=== PATIENT | female | born 1940 | race Caucasian/White ===

== ENCOUNTER → 2017-03-08 | Outpatient (CLI) | payer OTHER ==
--- NOTE | 2017-03-09 09:09 | MG ---
Examination: Bilateral screening mammogram. Clinical history: Routine screening. Technique: Digital CC and MLO views of both breasts were obtained. Computer aided detection analysis was performed and used during the interpretation. Comparison: 01/13/2016. Findings: The breasts are composed of scattered fibroglandular densities. Benign-appearing calcifications and vascular calcifications are noted in the breasts bilaterally. No suspicious mass, area of architectural distortion or suspicious cluster of microcalcifications is noted. Impression: 1. No mammographic evidence of malignancy. BI-RADS category 2-benign findings. Recommend routine annual screening mammogram. Diagnostic CAD was utilized and reviewed. * 0 (ZERO) - ASSESSMENT INCOMPLETE; ADDITIONAL IMAGING IS NEEDED. * 0C - ASSESSMENT INCOMPLETE, NEEDS ADDITIONAL IMAGING EVALUATION AND/OR PRIOR MAMMOGRAMS FOR COMPAR DEMETRA. * 1/1 (ONE) - NEGATIVE. * 2/II (TWO) - BENIGN FINDINGS. * 3/III (THREE) - PROBABLY BENIGN FINDING; SHORT INTERVAL FOLLOW-UP SUGGESTED. * 4/IV (FOUR) - SUSPICIOUS ABNORMALITY; BIOPSY SHOULD BE CONSIDERED. * 5/V - HIGHLY SUSPICIOUS OF MALIGNANCY; BIOPSY SHOULD BE PERFORMED. * 6/IV - KNOWN BIOPSY PROVEN MALIGNANCY-APPROPRIATE ACTION SHOULD BE TAKEN. A NEGATIVE X-RAY REPORT SHOULD NOT DELAY BIOPSY IF A DOMINANT OR CLINICALLY SUSPICIOUS MASS IS PRESENT; 4 TO 8 PERCENT OF CANCERS ARE NOT IDENTIFIED BY X-RAY. A NEGATIVE REPORT MAY REINFORCE THE CLINICAL IMPRESSION. ADENOSIS AND DENSE BREASTS MAY OBSCURE AN UNDERLYING NEOPLASM. Reported By:
== END ==
LOC: RAD 14:08
PROVIDERS: ATTEND Specialist
DX: Z12.31 Encounter for screening mammogram for malignant neoplasm of breast (principal)
CPT/HCPCS: 77067

== ENCOUNTER → 2017-08-16 | Outpatient (CLI) | payer OTHER ==
--- NOTE | 2017-08-17 14:15 | RAD ---
HISTORY: Shortness of breath Study: Chest PA and lateral Comparison: None Findings: The heart is within normal limits in size. The todd are normal. The lungs are hyperinflated consisten t with COPD. No acute alveolar infiltrates or pleural effusions are identified. The bony thorax is un remarkable with the exception of a pectus excavatum deformity. IMPRESSION: COPD Reported By:
== END | disposition home or self-care (01) ==
LOC: RAD 14:55
PROVIDERS: ATTEND Nurse Practitioner Family
DX: R06.02 Shortness of breath (principal); J44.9 Chronic obstructive pulmonary disease, unspecified
CPT/HCPCS: 71020

== ENCOUNTER 2022-07-13 13:02 | Observation (INO) ==
[2022-07-13] MEDS ORDERED: REMDESIVIR 200 MG in NS 250 ML IV 250 ML IV ONE (13:29)
[2022-07-13] MEDS ORDERED: ROCEPHIN 1 GRAM IV PREMIX 1 G/50 ML IV.SOLN. IV SCH (13:29)
--- NOTE | 2022-07-13 13:44 | DR.H&P ---
H&P - History & Physical for Day of: H&P Date: 07/13/22 - Chief Complaint Chief Complaint: covid +, weakness - History of Present Illness History of Present Illness: PT IS 82 WF DIRECT ADMIT FROM DR DANIEL OFFICE WITH CO RECENTLY SEEN IN ER WITH COVID 19, NO BETTER. PT CO FEELING VERY WEAK, NO APPETITE, DEHYDRATION. PT HAS PMH OF HTN, AROTIC VAVLE DISEASE, COPD. PT ADMITTED FOR TREATMENT OF ACUTE ILLNESS. - Past Medical History Past Medical History: Arthritis, COPD, Hypertension - Past Surgical History Additional Surgical History: TUBAL LIGATION, CATARACT - Family History Family Medical History: Hypertension - Social History Does patient currently use any type of tobacco product: No Have you used tobacco products in the last 12 months: No Type of Tobacco Use: None Does any household member use tobacco: No Alcohol Use: Rarely Drug Use: None Risks, benefits, and alternatives of opioids discussed: No - Medications Home Medications: Sulfa (Sulfonamide Antibiotics) [SULFA] Allergy (Verified 08/22/20 07:46) - Review of Systems Constitutional: Weakness, Malaise Eyes: No Symptoms Reported ENT: No Symptoms Reported Respiratory: SOB with Excertion Cardiovascular: denies: Chest Pain Gastrointestinal: Nausea, Diarrhea Genitourinary: No Symptoms Reported Musculoskeletal: No Symptoms Reported Skin: No Symptoms Reported Neurological: Weakness - Physical Exam Vital Signs: Blood Pressure [Standing] 123/55 Blood Pressure [Sitting] 149/65 Blood Pressure [Lying] 183/77 Blood Pressure 169/69 Oriented: Normal Eyes: Normal Ear: Normal Nose: Normal Throat: Normal Respiratory: RLL Diminished, LLL Diminished Cardiovascular: Normal. negative: Edema : Normal Auscultation: Bowel Sounds: Normal Palpation: Normal Tenderness: Normal Skin: Decreased Turgur Musculoskeletal: Normal Psychiatric: Anxiety Affect: Anxious Speech Pattern: Clear, Appropriate - Assessment/Plan (1) COVID-19 Status: Acute Plan: ADMIT, GENTLE IV HYDRATION. STRICT I&OS, REMDESIVIR. PPI, NAUSEA CONTROL, BP AND CARDIAC MONITORING. RESP CONSULT, EKG ON ADMISSION. CXR ON ADMISSION, PRN SUPPLEMENTAL O2 (2) Acute dehydration Status: Acute (3) Hypertension Status: Acute (4) Hypokalemia Status: Acute - Allergies Allergies/Adverse Reactions: Allergies Allergy/AdvReac Type Severity Reaction Status Date / Time Sulfa (Sulfonamide Allergy Verified 08/22/20 07:46 Antibiotics) [SULFA]
[2022-07-13 14:02] LABS: BASOPHILS % (AUTO) 0.7 % (0.2-1.0); EOSINOPHILS % (AUTO) 0.2 % (0.9-2.9); HEMATOCRIT 42.9 % (36.0-47.0); HEMOGLOBIN 14.7 g/dL (12.0-16.0); LYMPHOCYTES # (AUTO) 1.3 X10^3/uL (1.3-2.9); MEAN CORPUSCULAR HEMOGLOBIN 29.2 pg (27.0-34.0); MEAN CORPUSCULAR HGB CONC 34.4 g/dL (33.0-35.0); MEAN PLATELET VOLUME 7.7 fL (7.4-11.0); MONOCYTES # (AUTO) 0.6 x10^3/uL (0.3-0.8); MONOCYTES % (AUTO) 8.7 % (0.0-13.0); NEUTROPHILS # (AUTO) 4.9 x10^3/uL (2.2-4.8); NEUTROPHILS % (AUTO) 71.4 % (42.0-75.0); RED BLOOD COUNT 5.05 X10^6/uL (3.5-5.4); RED CELL DISTRIBUTION WIDTH 13.5 % (11.6-16.5); WHITE BLOOD COUNT 6.9 X10^3/uL (3.6-10.0)
[2022-07-13 14:26] LABS: ALANINE AMINOTRANSFERASE 31 Units/L (12-78); ALBUMIN 3.9 g/dL (3.4-5.0); ALKALINE PHOSPHATASE 73 Units/L (46-116); ASPARTATE AMINO TRANSFERASE 37 Units/L (15-37); BLOOD UREA NITROGEN 16 mg/dL (7-18); CALCIUM 8.7 mg/dL (8.5-10.1); CARBON DIOXIDE 34.3 mmol/L (21-32); CHLORIDE 95 mmol/L (98-107); CREATINE KINASE 113 Units/L (26-192); CREATININE 1.12 mg/dL (0.55-1.02); MAGNESIUM 1.6 mg/dL (1.7-2.9); SODIUM 137 mmol/L (136-145); TOTAL PROTEIN 7.4 g/dL (6.4-8.2); eGFR NON BLACK RACES 50 (>60)
--- NOTE | 2022-07-13 15:19 | RAD ---
HISTORYCOVID-19STUDYAP [id number] normal heart size with mild symmetric pulmonary hyperaeration. There is no evidence for infiltrate, pulmonary nodule, pleural fluid or other acute process.IMPRESSIONFindings consistent with COPD. No acute abnormality identified.Electronically signed by: FRANCOIS LUCAS (Jul 13, 2022 15:17:27)
[2022-07-13] MEDS: ROCEPHIN VIAL 1 GRAM 1 G in NS 100 ML IV 100 ML IV SCH (16:07)
[2022-07-13] MEDS: NS 1,000 ML IV 1,000 ML IV SCH (16:07)
[2022-07-13] MEDS: PROTONIX INJ 40 MG VIAL IVP SCH (16:07)
[2022-07-13] MEDS: SOLU-Medrol 40 MG VIAL IVP SCH ×2 (16:08→21:00)
[2022-07-13 16:16] LABS: BILIRUBIN,URINE NEGATIVE (NEGATIVE); BLOOD/HEMOGLOBIN,URINE 1+ (NEGATIVE); GLUCOSE, URINE NEGATIVE (NEGATIVE); KETONES,URINE NEGATIVE (NEGATIVE); LEUKOCYTE ESTERASE ,URINE NEGATIVE (NEGATIVE); NITRITES,URINE NEGATIVE (NEGATIVE); PH,URINE 6.5 (5.0 - 8.0); PROTEIN,URINE NEGATIVE (NEGATIVE); UROBILINOGEN,URINE NORMAL (NORMAL)
[2022-07-13 16:30] LABS: APPEARANCE,URINE CLEAR (CLEAR); COLOR,URINE STRAW (YELLOW)
[2022-07-13 16:31] LABS: BACTERIA,URINE NEGATIVE /HPF (NEGATIVE); RBC,URINE 0-2 /HPF (0-3); SQUAMOUS EPITHELIAL CELL,UR RARE /HPF (NEGATIVE)
[2022-07-13] MEDS ORDERED: NS 250 ML IV 250 ML IV ONE (17:08)
[2022-07-13] MEDS ORDERED: REMDESIVIR IV ONE (17:08)
[2022-07-13] MEDS: XOPENEX 1.25 MG/3 ML NEBULE NEB SCH (21:00)
[2022-07-13] MEDS: PULMICORT NEB TX 0.5 MG NEB SCH (21:00)
[2022-07-13] MEDS ORDERED: KLOR-CON PO PRN (22:59)
[2022-07-13] MEDS ORDERED: MICRO K EXTEN CAP 10 MEQ PO PRN (22:59)
[2022-07-13] MEDS ORDERED: POTASSIUM CHL 40 MEQ/NS 0.45% 500 ML IV PRN (22:59)
[2022-07-13] MEDS ORDERED: POTASSIUM CHLORIDE LIQ 20 MEQ UDC PO PRN (22:59)
[2022-07-13] MEDS ORDERED: K-RIDER 10 MEQ/NS 100 ML 10 MEQ/100 ML BAG IV PRN (22:59)
[2022-07-13] MEDS ORDERED: POTASSIUM CHL 60 MEQ/NS 0.45% 500 ML IV PRN (22:59)
[2022-07-13] MEDS: MAGNESIUM SULFATE 1 GRAM/100 mL PREMIX 1 G/100 ML BAG IV PRN (23:27)
[2022-07-14] MEDS: MAGNESIUM SULFATE 1 GRAM/100 mL PREMIX 1 G/100 ML BAG IV PRN (00:46)
[2022-07-14 02:41] LABS: BASOPHILS % (AUTO) 0.4 % (0.2-1.0); HEMATOCRIT 41.4 % (36.0-47.0); HEMOGLOBIN 14.5 g/dL (12.0-16.0); LYMPHOCYTES # (AUTO) 0.7 X10^3/uL (1.3-2.9); LYMPHOCYTES % (AUTO) 18.3 % (21.0-51.0); MEAN CORPUSCULAR HEMOGLOBIN 29.6 pg (27.0-34.0); MEAN CORPUSCULAR HGB CONC 34.9 g/dL (33.0-35.0); MEAN CORPUSCULAR VOLUME 84.7 fL (80.0-100.0); MEAN PLATELET VOLUME 8.3 fL (7.4-11.0); MONOCYTES # (AUTO) 0.1 x10^3/uL (0.3-0.8); MONOCYTES % (AUTO) 1.4 % (0.0-13.0); NEUTROPHILS # (AUTO) 3.2 x10^3/uL (2.2-4.8); NEUTROPHILS % (AUTO) 79.9 % (42.0-75.0); RED BLOOD COUNT 4.89 X10^6/uL (3.5-5.4); RED CELL DISTRIBUTION WIDTH 13.5 % (11.6-16.5); WHITE BLOOD COUNT 4.1 X10^3/uL (3.6-10.0)
[2022-07-14 02:50] LABS: ALANINE AMINOTRANSFERASE 27 Units/L (12-78); ALBUMIN 3.5 g/dL (3.4-5.0); ALKALINE PHOSPHATASE 72 Units/L (46-116); ASPARTATE AMINO TRANSFERASE 32 Units/L (15-37); BLOOD UREA NITROGEN 13 mg/dL (7-18); CALCIUM 8.6 mg/dL (8.5-10.1); CARBON DIOXIDE 29.1 mmol/L (21-32); CHLORIDE 96 mmol/L (98-107); COR NA(FOR HYPERGLY) 139 mmol/L (136-145); CREATININE 1.16 mg/dL (0.55-1.02); SODIUM 137 mmol/L (136-145); TOTAL PROTEIN 7.2 g/dL (6.4-8.2); eGFR NON BLACK RACES 48 (>60)
[2022-07-14] MEDS: K-DUR TAB 20 MEQ PO PRN ×3 (03:19→14:13)
[2022-07-14] MEDS ORDERED: CARDIZEM CD 120 MG 24-HR PO ONE (03:42)
[2022-07-14] MEDS ORDERED: HYDROCHLOROTHIAZIDE 25 MG TAB PO ONE (03:47)
[2022-07-14] MEDS: NS 1,000 ML IV 1,000 ML IV SCH ×4 (04:22→23:08)
[2022-07-14] MEDS: XOPENEX 1.25 MG/3 ML NEBULE NEB SCH ×4 (05:00→20:10)
[2022-07-14] MEDS: SOLU-Medrol 40 MG VIAL IVP SCH ×2 (05:02→14:48)
[2022-07-14] MEDS ORDERED: REMDESIVIR 100 MG in NS 250 ML IV 250 ML IV SCH (09:00)
[2022-07-14] MEDS: PROTONIX INJ 40 MG VIAL IVP SCH (09:03)
[2022-07-14] MEDS: ROCEPHIN VIAL 1 GRAM 1 G in NS 100 ML IV 100 ML IV SCH (09:07)
[2022-07-14] MEDS: PULMICORT NEB TX 0.5 MG NEB SCH ×2 (09:50→20:10)
[2022-07-14] MEDS: LOVENOX INJ 30 MG SYR SC SCH ×2 (10:05→20:50)
[2022-07-15] MEDS: XOPENEX 1.25 MG/3 ML NEBULE NEB SCH (05:40)
[2022-07-15 05:46] LABS: BASOPHILS % (AUTO) 0.1 % (0.2-1.0); HEMOGLOBIN 13.2 g/dL (12.0-16.0); LYMPHOCYTES % (AUTO) 10.2 % (21.0-51.0); MEAN CORPUSCULAR HEMOGLOBIN 29.6 pg (27.0-34.0); MEAN CORPUSCULAR HGB CONC 34.7 g/dL (33.0-35.0); MEAN CORPUSCULAR VOLUME 85.4 fL (80.0-100.0); MONOCYTES # (AUTO) 0.5 x10^3/uL (0.3-0.8); MONOCYTES % (AUTO) 5.4 % (0.0-13.0); NEUTROPHILS # (AUTO) 8.4 x10^3/uL (2.2-4.8); NEUTROPHILS % (AUTO) 84.3 % (42.0-75.0); RED BLOOD COUNT 4.45 X10^6/uL (3.5-5.4); RED CELL DISTRIBUTION WIDTH 13.4 % (11.6-16.5); WHITE BLOOD COUNT 9.9 X10^3/uL (3.6-10.0)
[2022-07-15 06:02] LABS: ALANINE AMINOTRANSFERASE 21 Units/L (12-78); ALBUMIN 3.1 g/dL (3.4-5.0); ALKALINE PHOSPHATASE 61 Units/L (46-116); ASPARTATE AMINO TRANSFERASE 25 Units/L (15-37); BLOOD UREA NITROGEN 18 mg/dL (7-18); CARBON DIOXIDE 28.3 mmol/L (21-32); CHLORIDE 103 mmol/L (98-107); COR CA(FOR HYPOALB) 8.7 mg/dL (8.5-10.1); COR NA(FOR HYPERGLY) 142 mmol/L (136-145); CREATININE 0.93 mg/dL (0.55-1.02); SODIUM 141 mmol/L (136-145); TOTAL PROTEIN 6.3 g/dL (6.4-8.2); eGFR NON BLACK RACES > 60 (>60)
[2022-07-15] MEDS: K-DUR TAB 20 MEQ PO PRN (06:21)
[2022-07-15] MEDS: PULMICORT NEB TX 0.5 MG NEB SCH (08:30)
[2022-07-15] MEDS: MAGNESIUM SULFATE 1 GRAM/100 mL PREMIX 1 G/100 ML BAG IV PRN ×2 (08:53→12:10)
[2022-07-15] MEDS ORDERED: HYDROCHLOROTHIAZIDE 25 MG TAB PO SCH (09:00)
[2022-07-15] MEDS ORDERED: CARDIZEM CD 120 MG 24-HR PO SCH (09:00)
[2022-07-15] MEDS ORDERED: SOLU-Medrol 40 MG VIAL IVP SCH (09:00)
[2022-07-15 09:32] VITALS: BP 136/66
[2022-07-15] MEDS: LOVENOX INJ 30 MG SYR SC SCH (09:37)
[2022-07-15] MEDS: PROTONIX INJ 40 MG VIAL IVP SCH (09:37)
[2022-07-15] MEDS: NS 1,000 ML IV 1,000 ML IV SCH (09:38)
[2022-07-15] MEDS: ROCEPHIN VIAL 1 GRAM 1 G in NS 100 ML IV 100 ML IV SCH (09:42)
== END 2022-07-15 13:20 | disposition home or self-care (01) ==
LOC: MED/SURG
PROVIDERS: ADMIT Internal Medicine; ATTEND Internal Medicine
DX: J44.9 Chronic obstructive pulmonary disease, unspecified; E83.42 Hypomagnesemia; M19.90 Unspecified osteoarthritis, unspecified site; R06.02 Shortness of breath; U07.1 COVID-19; R94.31 Abnormal electrocardiogram [ECG] [EKG]; I35.8 Other nonrheumatic aortic valve disorders; E87.6 Hypokalemia; K52.9 Noninfective gastroenteritis and colitis, unspecified; I10 Essential (primary) hypertension; E86.0 Dehydration

== ENCOUNTER 2024-03-07 10:42 | Inpatient (IN) ==
[2024-03-07] MEDS ORDERED: TYLENOL 500 MG TAB EXTRA STRENGTH PO PRN (14:56)
[2024-03-07] MEDS: MIRALAX POWDER (1 DOSE 17 G) PO SCH (16:16)
[2024-03-07] MEDS: ROBAXIN PO SCH (16:16)
[2024-03-07] MEDS: LIDODERM 5% PATCH TD SCH (16:16)
[2024-03-07] MEDS: NEURONTIN CAP 100 MG PO SCH (16:17)
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
[2024-03-07] MEDS: CRESTOR TAB 10 MG PO SCH (21:03)
[2024-03-07] MEDS: ROXICODONE TAB 5 MG PO PRN (21:19)
[2024-03-08 05:12] LABS: BASOPHILS # (AUTO) 0.1 X10^3/uL (0.0-0.1); BASOPHILS % (AUTO) 0.4 % (0.2-1.0); EOSINOPHILS # (AUTO) 0.3 x10^3/uL (0.0-0.2); EOSINOPHILS % (AUTO) 2.9 % (0.9-2.9); HEMATOCRIT 29.6 % (36.0-47.0); HEMOGLOBIN 9.9 g/dL (12.0-16.0); LYMPHOCYTES # (AUTO) 1.1 X10^3/uL (1.3-2.9); LYMPHOCYTES % (AUTO) 8.9 % (21.0-51.0); MEAN CORPUSCULAR HEMOGLOBIN 30.2 pg (27.0-34.0); MEAN CORPUSCULAR HGB CONC 33.4 g/dL (33.0-35.0); MEAN CORPUSCULAR VOLUME 90.5 fL (80.0-100.0); MEAN PLATELET VOLUME 6.9 fL (7.4-11.0); NEUTROPHILS # (AUTO) 9.6 x10^3/uL (2.2-4.8); NEUTROPHILS % (AUTO) 79.8 % (42.0-75.0); PLATELET COUNT 661 X10^3/uL (150.0-450.0); RED BLOOD COUNT 3.28 X10^6/uL (3.5-5.4); RED CELL DISTRIBUTION WIDTH 15.9 % (11.6-16.5)
[2024-03-08 05:26] LABS: ALANINE AMINOTRANSFERASE 27 Units/L (12-78); ALBUMIN 1.9 g/dL (3.4-5.0); ALKALINE PHOSPHATASE 133 Units/L (46-116); ASPARTATE AMINO TRANSFERASE 41 Units/L (15-37); BLOOD UREA NITROGEN 14 mg/dL (7-18); CALCIUM 8.3 mg/dL (8.5-10.1); CARBON DIOXIDE 31.7 mmol/L (21-32); CHLORIDE 101 mmol/L (98-107); CREATININE 0.72 mg/dL (0.55-1.02); GLUCOSE 90 mg/dL (65-99); POTASSIUM 3.3 mmol/L (3.5-5.1); SODIUM 137 mmol/L (136-145); TOTAL PROTEIN 5.7 g/dL (6.4-8.2); eGFR NON BLACK RACES > 60 (>60)
[2024-03-08] MEDS ORDERED: CONSULT PHARMACY - POTASSIUM & MAGNESIUM XX SCH (06:00)
[2024-03-08] MEDS: K-DUR TAB 20 MEQ PO SCH (09:19)
[2024-03-08] MEDS: PROTONIX TAB 40 MG PO SCH (10:31)
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
[2024-03-08] MEDS: ROXICODONE TAB 5 MG PO SCH (13:26)
--- NOTE | 2024-03-09 08:31 | DR.UPDATE ---
H&P UPDATE (1) Multiple fractures: (2) Severe trauma to extremity within past 4 weeks: Review Yes Any changes to H&P?: Yes Changes noted:: S/P TRAUMATIC ORTHOPEDIC REPAIR
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
[2024-03-09] MEDS: MILK OF MAGNESIA PO SCH (20:13)
[2024-03-09] MEDS: COLACE CAP 100 MG PO SCH (20:14)
[2024-03-10 06:19] LABS: BASOPHILS # (AUTO) 0.1 X10^3/uL (0.0-0.1); BASOPHILS % (AUTO) 0.8 % (0.2-1.0); EOSINOPHILS # (AUTO) 0.5 x10^3/uL (0.0-0.2); EOSINOPHILS % (AUTO) 4.8 % (0.9-2.9); HEMATOCRIT 28.3 % (36.0-47.0); HEMOGLOBIN 9.7 g/dL (12.0-16.0); LYMPHOCYTES # (AUTO) 1.3 X10^3/uL (1.3-2.9); LYMPHOCYTES % (AUTO) 12.9 % (21.0-51.0); MEAN CORPUSCULAR HEMOGLOBIN 30.9 pg (27.0-34.0); MEAN CORPUSCULAR HGB CONC 34.2 g/dL (33.0-35.0); MEAN CORPUSCULAR VOLUME 90.4 fL (80.0-100.0); MEAN PLATELET VOLUME 7.1 fL (7.4-11.0); MONOCYTES # (AUTO) 1.1 x10^3/uL (0.3-0.8); MONOCYTES % (AUTO) 10.8 % (0.0-13.0); NEUTROPHILS % (AUTO) 70.7 % (42.0-75.0); PLATELET COUNT 510 X10^3/uL (150.0-450.0); RED BLOOD COUNT 3.13 X10^6/uL (3.5-5.4); RED CELL DISTRIBUTION WIDTH 15.6 % (11.6-16.5); WHITE BLOOD COUNT 9.9 X10^3/uL (3.6-10.0)
[2024-03-10 06:33] LABS: ALANINE AMINOTRANSFERASE 25 Units/L (12-78); ALBUMIN 1.9 g/dL (3.4-5.0); ALKALINE PHOSPHATASE 138 Units/L (46-116); ASPARTATE AMINO TRANSFERASE 30 Units/L (15-37); BLOOD UREA NITROGEN 15 mg/dL (7-18); CALCIUM 8.4 mg/dL (8.5-10.1); CARBON DIOXIDE 28.7 mmol/L (21-32); CHLORIDE 102 mmol/L (98-107); COR CA(FOR HYPOALB) 10.1 mg/dL (8.5-10.1); CREATININE 0.73 mg/dL (0.55-1.02); GLUCOSE 90 mg/dL (65-99); MAGNESIUM 2.2 mg/dL (2.0-2.9); POTASSIUM 3.5 mmol/L (3.5-5.1); SODIUM 140 mmol/L (136-145); TOTAL PROTEIN 5.7 g/dL (6.4-8.2); eGFR NON BLACK RACES > 60 (>60)
[2024-03-10] MEDS: CONSULT PHARMACY - POTASSIUM & MAGNESIUM XX SCH (07:24)
[2024-03-10] MEDS: K-DUR TAB 20 MEQ PO SCH (08:36)
--- NOTE | 2024-03-10 12:21 | VAS ---
EXAM:VENOUS DOPPLER LOWER EXTREMITY UNILATERAL LEFTHISTORY:. Evaluate for DVT.COMPARISON:: None.TECHNIQUE:Ultrasound of the deep venous vasculature of the left lower extremity was performed. Color and spectral doppler imaging was utilized.FINDINGS:The deep veins of the left lower extremity are normal in size and configuration. No intraluminal filling defects are seen on grayscale or color flow imaging. The veins compress normally. Doppler waveforms are normal at rest and with augmentation.IMPRESSION:Negative left lower extremity DVT ultrasound examination.THIS IS AN ELECTRONICALLY VERIFIED FINAL REPORT03/10/2024 12:17 PM - Electronically signed by Eliezer Cardona
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
[2024-03-10] MEDS: DULCOLAX SUPPOSITORY 10 MG ONE (21:52)
[2024-03-10] MEDS: DULCOLAX SUPPOSITORY 10 MG RECTAL ONE (21:59)
[2024-03-11 06:29] LABS: BASOPHILS # (AUTO) 0.1 X10^3/uL (0.0-0.1); BASOPHILS % (AUTO) 0.6 % (0.2-1.0); EOSINOPHILS # (AUTO) 0.5 x10^3/uL (0.0-0.2); EOSINOPHILS % (AUTO) 5.4 % (0.9-2.9); HEMOGLOBIN 9.9 g/dL (12.0-16.0); LYMPHOCYTES # (AUTO) 1.4 X10^3/uL (1.3-2.9); LYMPHOCYTES % (AUTO) 13.7 % (21.0-51.0); MEAN CORPUSCULAR VOLUME 91.1 fL (80.0-100.0); MONOCYTES % (AUTO) 10.2 % (0.0-13.0); NEUTROPHILS # (AUTO) 7.1 x10^3/uL (2.2-4.8); NEUTROPHILS % (AUTO) 70.1 % (42.0-75.0); PLATELET COUNT 473 X10^3/uL (150.0-450.0); RED BLOOD COUNT 3.19 X10^6/uL (3.5-5.4); RED CELL DISTRIBUTION WIDTH 15.8 % (11.6-16.5); WHITE BLOOD COUNT 10.1 X10^3/uL (3.6-10.0)
[2024-03-11 06:51] LABS: ALANINE AMINOTRANSFERASE 29 Units/L (12-78); ALKALINE PHOSPHATASE 155 Units/L (46-116); ASPARTATE AMINO TRANSFERASE 35 Units/L (15-37); BLOOD UREA NITROGEN 15 mg/dL (7-18); CALCIUM 8.6 mg/dL (8.5-10.1); CARBON DIOXIDE 29.4 mmol/L (21-32); CHLORIDE 101 mmol/L (98-107); COR CA(FOR HYPOALB) 10.2 mg/dL (8.5-10.1); GLUCOSE 89 mg/dL (65-99); MAGNESIUM 2.3 mg/dL (2.0-2.9); SODIUM 138 mmol/L (136-145); eGFR NON BLACK RACES > 60 (>60)
[2024-03-11] MEDS ORDERED: TORADOL 15 MG VIAL IVP PRN (10:23)
--- NOTE | 2024-03-11 13:52 | RAD ---
EXAM:Left kneeHISTORY:left knee pain, swelling; pt states she recently had an accident and broke the left hipCOMPARISON:None.TECHNIQUE:3 views were submitted for interpretation.FINDINGS:Joint space and alignment are normal. No displaced fracture.IMPRESSION:No acute abnormality.THIS IS AN ELECTRONICALLY VERIFIED FINAL REPORT03/11/2024 1:48 PM - Electronically signed by Yoni Bernstein MD
--- NOTE | 2024-03-11 14:43 | CT ---
EXAM:CT pelvis without contrastHISTORY:LT HIP PAIN; pt states she recently had an accident and broke the left hipCOMPARISON:None.TECHNIQUE:Noncontrast CT imaging was performed through the pelvis. Dose reduction techniques including Automated Exposure Control (AEC) and adjustment of mA and kV were utilized.FINDINGS:BOWEL: Large amount of stool throughout the colon without other abnormalities.APPENDIX: No significant abnormality.PERITONEUM: No free fluid, free air or fluid collection.VASCULATURE:Moderate atherosclerosis with normal caliber of the aorta.LYMPH NODES: No adenopathy.BLADDER: Distended without wall thickening.REPRODUCTIVE ORGANS: No significant abnormality.BONES: Acute comminuted right pubic bone fracture with surrounding hematoma. Acute fractures of the left transverse processes of L3 and L4. Acute bilateral zone 2 sacral fractures. Expected positioning of lumbosacral fusion.ADDITIONAL FINDINGS: None.IMPRESSION:1. Acute sacral and right pubic bone fractures as well as acute fractures of the left transverse processes of L3 and L4.2. Additional findings as above.THIS IS AN ELECTRONICALLY VERIFIED FINAL REPORT03/11/2024 2:39 PM - Electronically signed by Roney Davis MD
[2024-03-13 07:24] LABS: BASOPHILS # (AUTO) 0.1 X10^3/uL (0.0-0.1); EOSINOPHILS # (AUTO) 0.4 x10^3/uL (0.0-0.2); EOSINOPHILS % (AUTO) 5.3 % (0.9-2.9); HEMATOCRIT 28.7 % (36.0-47.0); HEMOGLOBIN 9.5 g/dL (12.0-16.0); LYMPHOCYTES # (AUTO) 1.6 X10^3/uL (1.3-2.9); LYMPHOCYTES % (AUTO) 18.6 % (21.0-51.0); MEAN CORPUSCULAR HEMOGLOBIN 30.5 pg (27.0-34.0); MEAN CORPUSCULAR HGB CONC 33.1 g/dL (33.0-35.0); MEAN PLATELET VOLUME 6.6 fL (7.4-11.0); MONOCYTES # (AUTO) 0.8 x10^3/uL (0.3-0.8); NEUTROPHILS # (AUTO) 5.5 x10^3/uL (2.2-4.8); NEUTROPHILS % (AUTO) 65.1 % (42.0-75.0); PLATELET COUNT 384 X10^3/uL (150.0-450.0); RED BLOOD COUNT 3.12 X10^6/uL (3.5-5.4); RED CELL DISTRIBUTION WIDTH 15.4 % (11.6-16.5); WHITE BLOOD COUNT 8.5 X10^3/uL (3.6-10.0)
[2024-03-13 07:33] LABS: ALANINE AMINOTRANSFERASE 41 Units/L (12-78); ALKALINE PHOSPHATASE 233 Units/L (46-116); ASPARTATE AMINO TRANSFERASE 57 Units/L (15-37); BLOOD UREA NITROGEN 12 mg/dL (7-18); CALCIUM 8.5 mg/dL (8.5-10.1); CARBON DIOXIDE 34.6 mmol/L (21-32); CHLORIDE 102 mmol/L (98-107); COR CA(FOR HYPOALB) 10.1 mg/dL (8.5-10.1); CREATININE 0.89 mg/dL (0.55-1.02); GLUCOSE 92 mg/dL (65-99); POTASSIUM 4.1 mmol/L (3.5-5.1); SODIUM 139 mmol/L (136-145); TOTAL PROTEIN 5.7 g/dL (6.4-8.2); eGFR NON BLACK RACES > 60 (>60)
[2024-03-13] MEDS: ZOFRAN TAB 4 MG PO PRN (09:51)
[2024-03-13] MEDS: MOTRIN TAB 800 MG PO PRN (19:13)
[2024-03-14] MEDS: ANTIVERT TAB 25 MG PO SCH (13:27)
--- NOTE | 2024-03-14 14:47 | RAD ---
EXAM:X-ray right foot three viewsHISTORY:Hx right 2nd and 3rd metatarsal base fractures -COMPARISON:None.FINDINGS:There are fractures of the proximal aspect of the 2nd and 3rd metatarsals. There may be a fracture of the base of 4th metatarsal, also. No dislocation is seen. There is a tiny calcaneal plantar spur.IMPRESSION:Nondisplaced fractures are seen in the proximal aspects of the 2nd and 3rd metatarsals and possibly the 4th metatarsal.THIS IS AN ELECTRONICALLY VERIFIED FINAL REPORT03/14/2024 2:44 PM - Electronically signed by Alexis Medley MD
[2024-03-14] MEDS: KEFLEX CAP 500 MG PO SCH (20:31)
[2024-03-15 06:17] LABS: BASOPHILS # (AUTO) 0.1 X10^3/uL (0.0-0.1); BASOPHILS % (AUTO) 0.6 % (0.2-1.0); EOSINOPHILS # (AUTO) 0.2 x10^3/uL (0.0-0.2); EOSINOPHILS % (AUTO) 2.2 % (0.9-2.9); HEMATOCRIT 29.4 % (36.0-47.0); LYMPHOCYTES # (AUTO) 1.6 X10^3/uL (1.3-2.9); LYMPHOCYTES % (AUTO) 14.5 % (21.0-51.0); MEAN CORPUSCULAR HEMOGLOBIN 30.7 pg (27.0-34.0); MEAN CORPUSCULAR HGB CONC 33.9 g/dL (33.0-35.0); MEAN CORPUSCULAR VOLUME 90.6 fL (80.0-100.0); MEAN PLATELET VOLUME 7.1 fL (7.4-11.0); MONOCYTES # (AUTO) 0.8 x10^3/uL (0.3-0.8); MONOCYTES % (AUTO) 7.6 % (0.0-13.0); NEUTROPHILS # (AUTO) 8.2 x10^3/uL (2.2-4.8); NEUTROPHILS % (AUTO) 75.1 % (42.0-75.0); PLATELET COUNT 400 X10^3/uL (150.0-450.0); RED BLOOD COUNT 3.25 X10^6/uL (3.5-5.4); RED CELL DISTRIBUTION WIDTH 15.4 % (11.6-16.5)
[2024-03-15 06:25] LABS: ALANINE AMINOTRANSFERASE 27 Units/L (12-78); ALBUMIN 2.1 g/dL (3.4-5.0); ALKALINE PHOSPHATASE 203 Units/L (46-116); ASPARTATE AMINO TRANSFERASE 32 Units/L (15-37); BLOOD UREA NITROGEN 20 mg/dL (7-18); CALCIUM 8.4 mg/dL (8.5-10.1); CARBON DIOXIDE 31.4 mmol/L (21-32); CHLORIDE 97 mmol/L (98-107); COR CA(FOR HYPOALB) 9.9 mg/dL (8.5-10.1); CREATININE 1.39 mg/dL (0.55-1.02); GLUCOSE 89 mg/dL (65-99); SODIUM 134 mmol/L (136-145); eGFR NON BLACK RACES 39 (>60)
--- NOTE | 2024-03-15 06:51 | RAD ---
EXAM:KUBHISTORY:ConstipationCOMPARISON: .br.br.br.br.br.br and nonobstructive. No abnormal masses or abnormal calcifications are identified. A large amount of stool is not identified. Regional skeleton is osteopenic. Postsurgical changes are present in the lower lumbar spine and pelvis with hardware present. There is evidence for old pelvic trauma with diastasis of the pubic symphysis.IMPRESSION:Nonspecific, nonobstructive bowel gas patternA large amount of stool is not identified.THIS IS AN ELECTRONICALLY VERIFIED FINAL REPORT03/15/2024 6:48 AM - Electronically signed by Alen Brown MD
[2024-03-15] MEDS ORDERED: CONSULT PHARMACY - POTASSIUM & MAGNESIUM XX SCH (10:00)
[2024-03-15] MEDS: ANTIVERT TAB 25 MG PO SCH (13:21)
--- NOTE | 2024-03-15 15:14 | RAD ---
EXAM:ANKLE, RIGHT x-ray three viewsHISTORY:HX OF MULTIPLE FRACTURES -COMPARISON:None.FINDINGS:There is a nondisplaced medial malleolus fracture. No widening of the ankle mortise is seen. There is likely mild diffuse soft tissue swelling. Tiny calcaneal plantar spur.IMPRESSION:Nondisplaced medial malleolus fracture.THIS IS AN ELECTRONICALLY VERIFIED FINAL REPORT03/15/2024 3:11 PM - Electronically signed by Alexis Medley MD
[2024-03-15] MEDS: MEGACE ORAL SUSP 400 MG/10 ML PO SCH (16:57)
[2024-03-15] MEDS: BUTT CREAM (COMPOUND) TOP PRN (21:59)
[2024-03-16 17:25] LABS: BILIRUBIN,URINE NEGATIVE (NEGATIVE); BLOOD/HEMOGLOBIN,URINE 1+ (NEGATIVE); GLUCOSE, URINE NEGATIVE (NEGATIVE); KETONES,URINE NEGATIVE (NEGATIVE); LEUKOCYTE ESTERASE ,URINE NEGATIVE (NEGATIVE); NITRITES,URINE NEGATIVE (NEGATIVE); PROTEIN,URINE 1+ (NEGATIVE); UROBILINOGEN,URINE NORMAL (NORMAL)
[2024-03-16 18:33] LABS: APPEARANCE,URINE CLEAR (CLEAR); COLOR,URINE YELLOW (YELLOW)
[2024-03-16 18:34] LABS: BACTERIA,URINE NEGATIVE /HPF (NEGATIVE); RBC,URINE 0-2 /HPF (0-3); SQUAMOUS EPITHELIAL CELL,UR RARE /HPF (NEGATIVE)
[2024-03-17 05:14] LABS: BASOPHILS # (AUTO) 0.1 X10^3/uL (0.0-0.1); BASOPHILS % (AUTO) 0.5 % (0.2-1.0); EOSINOPHILS # (AUTO) 0.4 x10^3/uL (0.0-0.2); HEMATOCRIT 29.1 % (36.0-47.0); HEMOGLOBIN 9.7 g/dL (12.0-16.0); LYMPHOCYTES # (AUTO) 1.2 X10^3/uL (1.3-2.9); LYMPHOCYTES % (AUTO) 11.5 % (21.0-51.0); MEAN CORPUSCULAR HEMOGLOBIN 30.2 pg (27.0-34.0); MEAN CORPUSCULAR HGB CONC 33.2 g/dL (33.0-35.0); MEAN CORPUSCULAR VOLUME 90.8 fL (80.0-100.0); MEAN PLATELET VOLUME 7.1 fL (7.4-11.0); MONOCYTES # (AUTO) 0.9 x10^3/uL (0.3-0.8); MONOCYTES % (AUTO) 8.3 % (0.0-13.0); NEUTROPHILS % (AUTO) 75.7 % (42.0-75.0); PLATELET COUNT 355 X10^3/uL (150.0-450.0); RED CELL DISTRIBUTION WIDTH 15.4 % (11.6-16.5); WHITE BLOOD COUNT 10.6 X10^3/uL (3.6-10.0)
[2024-03-17 05:34] LABS: ALANINE AMINOTRANSFERASE 45 Units/L (12-78); ALKALINE PHOSPHATASE 330 Units/L (46-116); ASPARTATE AMINO TRANSFERASE 57 Units/L (15-37); BLOOD UREA NITROGEN 22 mg/dL (7-18); CALCIUM 8.2 mg/dL (8.5-10.1); CARBON DIOXIDE 31.5 mmol/L (21-32); CHLORIDE 100 mmol/L (98-107); COR CA(FOR HYPOALB) 9.8 mg/dL (8.5-10.1); CREATININE 1.26 mg/dL (0.55-1.02); GLUCOSE 96 mg/dL (65-99); MAGNESIUM 3.7 mg/dL (2.0-2.9); POTASSIUM 3.6 mmol/L (3.5-5.1); SODIUM 137 mmol/L (136-145); TOTAL PROTEIN 5.9 g/dL (6.4-8.2); eGFR NON BLACK RACES 43 (>60)
[2024-03-17] MEDS ORDERED: CONSULT PHARMACY - POTASSIUM & MAGNESIUM XX SCH (06:00)
[2024-03-17] MEDS: K-DUR TAB 20 MEQ PO SCH (10:40)
--- NOTE | 2024-03-17 10:44 | CT ---
EXAM: BRAIN W/O CON HISTORY: Visual disturbance TECHNIQUE: Axial noncontrast images with coronal and sagittal reformats. Dose reduction procedures were used w ith mA/kv adjusted for body size. COMPARISON: None FINDINGS: Ventricles are normal in size shape and position. There is decreased attenuation in the periventri cular white matter suggestive of small-vessel vascular disease. There is cortical atrophy present li carlos alberto age related. There are no focal areas of abnormal attenuation to suggest recent or remote CVA, hemorrhage, contusion, mass lesion, or extra-axial fluid collection. Visualized sinuses are clear. Globes are intact. Retro-orbital soft tissue structures are normal. Calvarium is intact. IMPRESSION: No definite acute intracranial abnormality identified Diffuse small-vessel vascular disease Cortical atrophy likely age-related. THIS IS AN ELECTRONICALLY VERIFIED FINAL REPORT 03/17/2024 10:41 AM - Electronically signed by Alen Brown MD
--- NOTE | 2024-03-17 10:44 | CT ---
EXAM: CERVICAL SPINE W/O CON HISTORY: WEAKNESS SHAKING TO UPPER EXTREMITIES; COMPARISON: None TECHNIQUE: CT of the cervical spine obtained without IV contrast. Coronal and sagittal images were reconstructed . Dose reduction techniques included Automated Exposure Control (AEC) and adjustment of mA and kV. FINDINGS: Normal cervical spinal alignment. Mild multilevel cervical spine degenerative changes. No acute osse ous abnormality. No acute soft tissue abnormality. Scarring in the lung apices. Scattered vascular calcifications. IMPRESSION: No acute fracture in the cervical spine. THIS IS AN ELECTRONICALLY VERIFIED FINAL REPORT 03/17/2024 10:41 AM - Electronically signed by Alen Brown MD
[2024-03-17] MEDS: MICRO K EXTEN CAP 10 MEQ PO SCH (12:52)
[2024-03-17] MEDS: LASIX IVP SCH (13:05)
[2024-03-17] MEDS: LASIX PO ONE (14:43)
[2024-03-20 06:38] LABS: BASOPHILS % (AUTO) 0.5 % (0.2-1.0); EOSINOPHILS # (AUTO) 0.4 x10^3/uL (0.0-0.2); EOSINOPHILS % (AUTO) 4.4 % (0.9-2.9); HEMATOCRIT 26.3 % (36.0-47.0); HEMOGLOBIN 8.9 g/dL (12.0-16.0); LYMPHOCYTES # (AUTO) 1.6 X10^3/uL (1.3-2.9); LYMPHOCYTES % (AUTO) 17.6 % (21.0-51.0); MEAN CORPUSCULAR HEMOGLOBIN 30.2 pg (27.0-34.0); MEAN CORPUSCULAR HGB CONC 33.8 g/dL (33.0-35.0); MEAN CORPUSCULAR VOLUME 89.1 fL (80.0-100.0); MEAN PLATELET VOLUME 7.2 fL (7.4-11.0); MONOCYTES # (AUTO) 0.8 x10^3/uL (0.3-0.8); MONOCYTES % (AUTO) 8.8 % (0.0-13.0); NEUTROPHILS # (AUTO) 6.3 x10^3/uL (2.2-4.8); NEUTROPHILS % (AUTO) 68.7 % (42.0-75.0); PLATELET COUNT 334 X10^3/uL (150.0-450.0); RED BLOOD COUNT 2.95 X10^6/uL (3.5-5.4); RED CELL DISTRIBUTION WIDTH 15.5 % (11.6-16.5); WHITE BLOOD COUNT 9.2 X10^3/uL (3.6-10.0)
[2024-03-20 06:40] LABS: ALANINE AMINOTRANSFERASE 22 Units/L (12-78); ALBUMIN 1.9 g/dL (3.4-5.0); ALKALINE PHOSPHATASE 212 Units/L (46-116); ASPARTATE AMINO TRANSFERASE 20 Units/L (15-37); BLOOD UREA NITROGEN 9 mg/dL (7-18); CALCIUM 8.2 mg/dL (8.5-10.1); CARBON DIOXIDE 31.1 mmol/L (21-32); CHLORIDE 102 mmol/L (98-107); COR CA(FOR HYPOALB) 9.9 mg/dL (8.5-10.1); CREATININE 0.95 mg/dL (0.55-1.02); GLUCOSE 87 mg/dL (65-99); MAGNESIUM 2.2 mg/dL (2.0-2.9); POTASSIUM 3.2 mmol/L (3.5-5.1); SODIUM 140 mmol/L (136-145); TOTAL PROTEIN 5.5 g/dL (6.4-8.2); eGFR NON BLACK RACES > 60 (>60)
[2024-03-20] MEDS ORDERED: CONSULT PHARMACY - POTASSIUM & MAGNESIUM XX SCH (07:00)
[2024-03-20] MEDS: K-DUR TAB 20 MEQ PO SCH ×2 (10:22→21:57)
[2024-03-20 17:06] VITALS: BMI 21.9
[2024-03-20] MEDS: HIBICLENS WASH ONE (19:59)
[2024-03-21 06:05] LABS: BASOPHILS % (AUTO) 0.4 % (0.2-1.0); EOSINOPHILS # (AUTO) 0.3 x10^3/uL (0.0-0.2); EOSINOPHILS % (AUTO) 2.9 % (0.9-2.9); HEMATOCRIT 26.4 % (36.0-47.0); HEMOGLOBIN 8.9 g/dL (12.0-16.0); LYMPHOCYTES # (AUTO) 1.8 X10^3/uL (1.3-2.9); LYMPHOCYTES % (AUTO) 16.2 % (21.0-51.0); MEAN CORPUSCULAR HEMOGLOBIN 30.4 pg (27.0-34.0); MEAN CORPUSCULAR HGB CONC 33.6 g/dL (33.0-35.0); MEAN CORPUSCULAR VOLUME 90.5 fL (80.0-100.0); MEAN PLATELET VOLUME 6.7 fL (7.4-11.0); MONOCYTES # (AUTO) 0.7 x10^3/uL (0.3-0.8); MONOCYTES % (AUTO) 6.5 % (0.0-13.0); NEUTROPHILS # (AUTO) 8.2 x10^3/uL (2.2-4.8); PLATELET COUNT 307 X10^3/uL (150.0-450.0); RED BLOOD COUNT 2.92 X10^6/uL (3.5-5.4); RED CELL DISTRIBUTION WIDTH 14.9 % (11.6-16.5); WHITE BLOOD COUNT 11.1 X10^3/uL (3.6-10.0)
[2024-03-21 06:29] LABS: ALANINE AMINOTRANSFERASE 79 Units/L (12-78); ALBUMIN 1.8 g/dL (3.4-5.0); ALKALINE PHOSPHATASE 363 Units/L (46-116); ASPARTATE AMINO TRANSFERASE 125 Units/L (15-37); BLOOD UREA NITROGEN 10 mg/dL (7-18); CALCIUM 8.3 mg/dL (8.5-10.1); CARBON DIOXIDE 29.4 mmol/L (21-32); CHLORIDE 102 mmol/L (98-107); COR CA(FOR HYPOALB) 10.1 mg/dL (8.5-10.1); CREATININE 0.95 mg/dL (0.55-1.02); GLUCOSE 93 mg/dL (65-99); POTASSIUM 3.9 mmol/L (3.5-5.1); SODIUM 138 mmol/L (136-145); TOTAL PROTEIN 5.7 g/dL (6.4-8.2); eGFR NON BLACK RACES > 60 (>60)
[2024-03-22 06:15] LABS: BASOPHILS % (AUTO) 0.5 % (0.2-1.0); EOSINOPHILS # (AUTO) 0.3 x10^3/uL (0.0-0.2); EOSINOPHILS % (AUTO) 3.2 % (0.9-2.9); HEMATOCRIT 27.9 % (36.0-47.0); HEMOGLOBIN 9.3 g/dL (12.0-16.0); LYMPHOCYTES # (AUTO) 1.7 X10^3/uL (1.3-2.9); LYMPHOCYTES % (AUTO) 18.4 % (21.0-51.0); MEAN CORPUSCULAR HEMOGLOBIN 30.4 pg (27.0-34.0); MEAN CORPUSCULAR HGB CONC 33.5 g/dL (33.0-35.0); MEAN CORPUSCULAR VOLUME 90.7 fL (80.0-100.0); MONOCYTES # (AUTO) 0.6 x10^3/uL (0.3-0.8); MONOCYTES % (AUTO) 6.5 % (0.0-13.0); NEUTROPHILS # (AUTO) 6.8 x10^3/uL (2.2-4.8); NEUTROPHILS % (AUTO) 71.4 % (42.0-75.0); PLATELET COUNT 302 X10^3/uL (150.0-450.0); RED BLOOD COUNT 3.07 X10^6/uL (3.5-5.4); RED CELL DISTRIBUTION WIDTH 15.3 % (11.6-16.5); WHITE BLOOD COUNT 9.5 X10^3/uL (3.6-10.0)
[2024-03-22 06:28] LABS: ALANINE AMINOTRANSFERASE 66 Units/L (12-78); ALBUMIN 1.9 g/dL (3.4-5.0); ALKALINE PHOSPHATASE 385 Units/L (46-116); ASPARTATE AMINO TRANSFERASE 78 Units/L (15-37); BLOOD UREA NITROGEN 10 mg/dL (7-18); CALCIUM 8.6 mg/dL (8.5-10.1); CARBON DIOXIDE 27.8 mmol/L (21-32); CHLORIDE 105 mmol/L (98-107); COR CA(FOR HYPOALB) 10.3 mg/dL (8.5-10.1); CREATININE 0.93 mg/dL (0.55-1.02); GLUCOSE 93 mg/dL (65-99); POTASSIUM 3.9 mmol/L (3.5-5.1); SODIUM 140 mmol/L (136-145); TOTAL PROTEIN 5.9 g/dL (6.4-8.2); eGFR NON BLACK RACES > 60 (>60)
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
[2024-03-24 05:03] LABS: BASOPHILS # (AUTO) 0.1 X10^3/uL (0.0-0.1); BASOPHILS % (AUTO) 0.9 % (0.2-1.0); EOSINOPHILS # (AUTO) 0.3 x10^3/uL (0.0-0.2); EOSINOPHILS % (AUTO) 3.7 % (0.9-2.9); HEMATOCRIT 25.6 % (36.0-47.0); HEMOGLOBIN 8.6 g/dL (12.0-16.0); LYMPHOCYTES # (AUTO) 1.4 X10^3/uL (1.3-2.9); LYMPHOCYTES % (AUTO) 15.2 % (21.0-51.0); MEAN CORPUSCULAR HEMOGLOBIN 30.5 pg (27.0-34.0); MEAN CORPUSCULAR HGB CONC 33.6 g/dL (33.0-35.0); MEAN CORPUSCULAR VOLUME 90.9 fL (80.0-100.0); MONOCYTES # (AUTO) 0.7 x10^3/uL (0.3-0.8); MONOCYTES % (AUTO) 7.3 % (0.0-13.0); NEUTROPHILS # (AUTO) 6.7 x10^3/uL (2.2-4.8); NEUTROPHILS % (AUTO) 72.9 % (42.0-75.0); PLATELET COUNT 347 X10^3/uL (150.0-450.0); RED BLOOD COUNT 2.82 X10^6/uL (3.5-5.4); RED CELL DISTRIBUTION WIDTH 15.2 % (11.6-16.5); WHITE BLOOD COUNT 9.3 X10^3/uL (3.6-10.0)
[2024-03-24 05:18] LABS: ALANINE AMINOTRANSFERASE 47 Units/L (12-78); ALBUMIN 1.8 g/dL (3.4-5.0); ALKALINE PHOSPHATASE 359 Units/L (46-116); ASPARTATE AMINO TRANSFERASE 35 Units/L (15-37); BLOOD UREA NITROGEN 11 mg/dL (7-18); CALCIUM 8.2 mg/dL (8.5-10.1); CARBON DIOXIDE 26.5 mmol/L (21-32); CHLORIDE 106 mmol/L (98-107); CREATININE 0.81 mg/dL (0.55-1.02); GLUCOSE 88 mg/dL (65-99); POTASSIUM 4.4 mmol/L (3.5-5.1); SODIUM 141 mmol/L (136-145); TOTAL PROTEIN 5.3 g/dL (6.4-8.2); eGFR NON BLACK RACES > 60 (>60)
[2024-03-24] MEDS: DULCOLAX SUPPOSITORY 10 MG RECTAL ONE (08:58)
[2024-03-24] MEDS: DULCOLAX SUPPOSITORY 10 MG ONE (09:10)
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
--- NOTE | 2024-03-24 23:53 | RAD ---
EXAM:PELVISHISTORY:post fracture; UnavailableCOMPARISON:None.FINDINGS:Ther e is evidence of old pelvic trauma with diastasis of the pubic symphysis. Spinal stabilization rods and pedicular screws at the lumbosacral junction with bilateral anchoring screws into the iliac bones. The SI joints are grossly unremarkable. The visualized portion of the right and left hip are normal in their appearance. No significant soft tissue abnormalities can be identified. 

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
[2024-03-26 05:09] LABS: BASOPHILS # (AUTO) 0.1 X10^3/uL (0.0-0.1); BASOPHILS % (AUTO) 0.5 % (0.2-1.0); EOSINOPHILS # (AUTO) 0.4 x10^3/uL (0.0-0.2); EOSINOPHILS % (AUTO) 3.8 % (0.9-2.9); HEMATOCRIT 28.2 % (36.0-47.0); HEMOGLOBIN 9.3 g/dL (12.0-16.0); LYMPHOCYTES # (AUTO) 1.9 X10^3/uL (1.3-2.9); MEAN CORPUSCULAR HEMOGLOBIN 29.8 pg (27.0-34.0); MEAN CORPUSCULAR HGB CONC 32.8 g/dL (33.0-35.0); MEAN PLATELET VOLUME 6.9 fL (7.4-11.0); MONOCYTES # (AUTO) 0.7 x10^3/uL (0.3-0.8); NEUTROPHILS # (AUTO) 8.1 x10^3/uL (2.2-4.8); NEUTROPHILS % (AUTO) 72.7 % (42.0-75.0); PLATELET COUNT 364 X10^3/uL (150.0-450.0); RED CELL DISTRIBUTION WIDTH 15.5 % (11.6-16.5); WHITE BLOOD COUNT 11.2 X10^3/uL (3.6-10.0)
[2024-03-26 05:24] LABS: ALANINE AMINOTRANSFERASE 58 Units/L (12-78); ALBUMIN 2.1 g/dL (3.4-5.0); ALKALINE PHOSPHATASE 416 Units/L (46-116); ASPARTATE AMINO TRANSFERASE 65 Units/L (15-37); BLOOD UREA NITROGEN 12 mg/dL (7-18); CALCIUM 8.5 mg/dL (8.5-10.1); CARBON DIOXIDE 27.1 mmol/L (21-32); CHLORIDE 106 mmol/L (98-107); CREATININE 0.89 mg/dL (0.55-1.02); GLUCOSE 89 mg/dL (65-99); POTASSIUM 4.4 mmol/L (3.5-5.1); SODIUM 140 mmol/L (136-145); eGFR NON BLACK RACES > 60 (>60)
[2024-03-27 06:15] LABS: BASOPHILS # (AUTO) 0.1 X10^3/uL (0.0-0.1); BASOPHILS % (AUTO) 0.5 % (0.2-1.0); EOSINOPHILS # (AUTO) 0.5 x10^3/uL (0.0-0.2); EOSINOPHILS % (AUTO) 4.8 % (0.9-2.9); HEMATOCRIT 28.4 % (36.0-47.0); HEMOGLOBIN 9.4 g/dL (12.0-16.0); LYMPHOCYTES # (AUTO) 1.8 X10^3/uL (1.3-2.9); LYMPHOCYTES % (AUTO) 16.9 % (21.0-51.0); MEAN CORPUSCULAR HEMOGLOBIN 30.5 pg (27.0-34.0); MEAN CORPUSCULAR HGB CONC 33.3 g/dL (33.0-35.0); MEAN CORPUSCULAR VOLUME 91.6 fL (80.0-100.0); MEAN PLATELET VOLUME 6.8 fL (7.4-11.0); MONOCYTES # (AUTO) 0.7 x10^3/uL (0.3-0.8); MONOCYTES % (AUTO) 6.6 % (0.0-13.0); NEUTROPHILS # (AUTO) 7.5 x10^3/uL (2.2-4.8); NEUTROPHILS % (AUTO) 71.2 % (42.0-75.0); PLATELET COUNT 350 X10^3/uL (150.0-450.0); RED CELL DISTRIBUTION WIDTH 15.9 % (11.6-16.5); WHITE BLOOD COUNT 10.5 X10^3/uL (3.6-10.0)
[2024-03-27 06:37] LABS: ALANINE AMINOTRANSFERASE 43 Units/L (12-78); ALBUMIN 2.2 g/dL (3.4-5.0); ALKALINE PHOSPHATASE 357 Units/L (46-116); ASPARTATE AMINO TRANSFERASE 32 Units/L (15-37); BLOOD UREA NITROGEN 12 mg/dL (7-18); CALCIUM 8.8 mg/dL (8.5-10.1); CARBON DIOXIDE 28.2 mmol/L (21-32); CHLORIDE 106 mmol/L (98-107); COR CA(FOR HYPOALB) 10.2 mg/dL (8.5-10.1); GLUCOSE 88 mg/dL (65-99); POTASSIUM 4.4 mmol/L (3.5-5.1); SODIUM 140 mmol/L (136-145); eGFR NON BLACK RACES > 60 (>60)
[2024-03-27 09:15] VITALS: BP 127/62; PULSE 74; RESP 18; TEMP 98.4; O2SAT 97
== END 2024-03-27 10:50 | disposition home health service (06) | DRG 552 ==
LOC: MED/SURG 14:00
PROVIDERS: ADMIT Internal Medicine; ATTEND Internal Medicine
DX: Z98.890 Other specified postprocedural states; W30.89XA Contact with other specified agricultural machinery, initial encounter; M25.562 Pain in left knee; S32.89XA Fracture of other parts of pelvis, initial encounter for closed fracture; S97.01XA Crushing injury of right ankle, initial encounter; M25.552 Pain in left hip; Z51.89 Encounter for other specified aftercare; J44.9 Chronic obstructive pulmonary disease, unspecified; R60.0 Localized edema; S22.41XA Multiple fractures of ribs, right side, initial encounter for closed fracture; R42 Dizziness and giddiness; K59.09 Other constipation; E87.6 Hypokalemia; M54.2 Cervicalgia; Y92.89 Other specified places as the place of occurrence of the external cause; S82.54XA Nondisplaced fracture of medial malleolus of right tibia, initial encounter for closed fracture; I10 Essential (primary) hypertension; H53.8 Other visual disturbances; S32.19XA Other fracture of sacrum, initial encounter for closed fracture

== ENCOUNTER 2025-07-08 10:04 | Inpatient (IN) ==
[2025-07-08] MEDS: LEVSIN/MAALOX/LIDOC VISC PO ONE (11:19)
--- NOTE | 2025-07-08 11:22 | ED.ABDFE ---
HPI Time Seen Time Seen by Provider: 07/08/25 11:08 PCP Primary Care Physician: RAJINDER Menendez Complaint Doctors Chief Complaint Comments: abdominal pain Chief Complaint:: Pt states that last night she had a sudden onset of epigastric pain that radiates across the upper abdomen. Pain is described as intermittent sharp stabbing in nature. No alleviating or exacerbating factors noted. Pain has worsened since waking up this morning. Pain is associated with nausea but no vomiting. Denies any fever or diarrhea. Pt had a normal bowel movement this morning. Self Treatment fo Chief Complaint: Pt took Tylenol and Tums this morning.with no improvement of symptoms. COVID-19 Coronavirus risk:travel/contact w/high risk person: No Has patient experienced Coronavirus symptoms: No Reviewed Nurses Notes Review: Yes Source History Provided: Patient Mode of arrival Mode of Arrival: Ambulatory Timing Onset of Chief Complaint: 07/07/25 Came on: Suddenly Duration Since Onset: Since Onset Duration: Hours Location Location: RUQ and Epigastric Severity Severity: Moderate Quality Quality: Aching and Cramping Context History of: None Modifying factors Worsening Factors: Nothing Improving Factors: Nothing Associated signs and symptoms Associated Signs and Symptoms: Nausea PMH PMH Past Medical History: Yes Past Medical History: Arthritis, COPD, Coronary Artery Disease, Dyslipidemia, GERD, Hypertension and CA Past Medical History Comment: Afib Past Surgical History: Yes Surgical History: Ortho Surgery Family History History of Family Medical Conditions: Yes Family Medical History: Hypertension Social History Does patient currently use any type of tobacco product: No Have you used tobacco products in the last 12 months: No Type of Tobacco Use: None Does any household member use tobacco: No Alcohol Use: None Do you use any recreational Drugs:: No Lives With: Family Lives Where: Home Travel Risk Coronavirus risk:travel/contact w/high risk person: No Has patient experienced Coronavirus symptoms: No Infectious screening In the last 2 months have you had wt loss of >10#?: NO Have you had fever, night sweats or hemotysis?: No Have you traveled outside the country in the last 6 months?: No Isolation: Standard ROS Review of Systems Constitutional: No Symptoms Reported and Loss of Appetite Eyes: No Symptoms Reported ENTM: No Symptoms Reported Respiratoy: No Symptoms Reported Cardiovascular: No Symptoms Reported Gastrointestinal/Abdominal: See HPI Genitourinary: No Symptoms Reported Neurological: No Symptoms Reported Musculoskeletal: No Symptoms Reported Integumentary: No Symptoms Reported Hematologic/Lymphatic: No Symptoms Reported Endocrine: No Symptoms Reported PE Vital Signs Vitals: Vital Signs Temperature 97.9 F Pulse Rate 80 Pulse Rate 83 Pulse Rate 83 Pulse Rate 83 Pulse Rate 79 Pulse Rate 76 Pulse Rate 58 Pulse Rate 52 Pulse Rate 53 Pulse Rate 57 Pulse Rate 50 Pulse Rate 48 Pulse Rate 51 Pulse Rate 52 Pulse Rate 51 Pulse Rate 51 Pulse Rate 54 Respiratory Rate 27 Respiratory Rate 32 Respiratory Rate 37 Respiratory Rate 21 Respiratory Rate 34 Respiratory Rate 35 Respiratory Rate 21 Respiratory Rate 20 Respiratory Rate 29 Respiratory Rate 24 Respiratory Rate 31 Respiratory Rate 20 Respiratory Rate 23 Respiratory Rate 39 Respiratory Rate 30 Respiratory Rate 30 Respiratory Rate 29 Respiratory Rate 32 Respiratory Rate 20 Respiratory Rate 26 Blood Pressure 175/74 Blood Pressure 176/77 Blood Pressure 100/49 Blood Pressure 138/61 Blood Pressure 156/65 Blood Pressure 121/58 O2 Sat by Pulse Oximetry 98 O2 Sat by Pulse Oximetry 96 O2 Sat by Pulse Oximetry 96 O2 Sat by Pulse Oximetry 95 O2 Sat by Pulse Oximetry 100 O2 Sat by Pulse Oximetry 99 O2 Sat by Pulse Oximetry 100 O2 Sat by Pulse Oximetry 100 O2 Sat by Pulse Oximetry 100 O2 Sat by Pulse Oximetry 99 O2 Sat by Pulse Oximetry 100 O2 Sat by Pulse Oximetry 100 O2 Sat by Pulse Oximetry 100 O2 Sat by Pulse Oximetry 100 O2 Sat by Pulse Oximetry 99 O2 Sat by Pulse Oximetry 98 O2 Sat by Pulse Oximetry 100 General Limitations: No Limitations General Appearance: Alert and In Distress Head Head Exam: Normal Inspection, Atraumatic and Normocephalic Eyes Eye exam: Normal Appearance, PERRL and EOMI ENT ENT Exam: Mucous Membranes Dry Neck Neck Exam: Normal Inspection and Full ROM Chest Chest Inspection: Normal Inspection and Symmetric Chest Wall Rise Respiratory Respiratory Exam: Normal Lung Sounds Bilat Respiratory Exam: Bilateral: Clear to Auscultation Cardiovascular Cardiovascular Exam: +S1 and +S2 Abdominal Exam Abdominal Exam: Normal Bowel Sounds, Soft and Tenderness Abdominal Tenderness: RUQ and Epigastrium Extremeties Extremities Exam: Normal Inspection Neurologic Neurological Exam: Alert Psychiatric Psychiatric Exam: Normal Affect Skin Skin Exam: Normal Color MDM Differential Diagnosis Differential Diagnosis- Considerations may include:: Cholangitis, Cholcystitis, Cholelethiasis, Esophagitis, Gastritus/PUD and Gastroenteritis COURSE Treatment Treatment: LABS,iv ,GI COCKTAIL , iV Morphine ROR Labs Reviewed Laboratory Results Reviewed?: Yes 07/08/25 11:37 07/08/25 11:37 Laboratory: WBC 16.5 X10^3/uL (3.6-10.0) H 07/08/25 11:37 RBC 4.43 X10^6/uL (3.5-5.4) 07/08/25 11:37 Hgb 13.3 g/dL (12.0-16.0) 07/08/25 11:37 Hct 39.6 % (36.0-47.0) 07/08/25 11:37 MCV 89.3 fL (80.0-100.0) 07/08/25 11:37 MCH 30.0 pg (27.0-34.0) 07/08/25 11:37 MCHC 33.6 g/dL (33.0-35.0) 07/08/25 11:37 RDW 13.1 % (11.6-16.5) 07/08/25 11:37 Plt Count 350 X10^3/uL (150.0-450.0) 07/08/25 11:37 MPV 7.1 fL (7.4-11.0) L 07/08/25 11:37 Neut % (Auto) 86.9 % (42.0-75.0) H 07/08/25 11:37 Lymph % (Auto) 10.1 % (21.0-51.0) L 07/08/25 11:37 Stephens % (Auto) 2.1 % (0.0-13.0) 07/08/25 11:37 Eos % (Auto) 0.3 % (0.9-2.9) L 07/08/25 11:37 Baso % (Auto) 0.6 % (0.2-1.0) 07/08/25 11:37 Neut # (Auto) 14.4 x10^3/uL (2.2-4.8) H 07/08/25 11:37 Lymph # (Auto) 1.7 X10^3/uL (1.3-2.9) 07/08/25 11:37 Stephens # (Auto) 0.4 x10^3/uL (0.3-0.8) 07/08/25 11:37 Eos # (Auto) 0.0 x10^3/uL (0.0-0.2) 07/08/25 11:37 Baso # (Auto) 0.1 X10^3/uL (0.0-0.1) 07/08/25 11:37 Absolute Nucleated RBC 0.0 /100WBC 07/08/25 11:37 Sodium 142 mmol/L (136-145) 07/08/25 11:37 Corrected Sodium 142 mmol/L (136-145) 07/08/25 11:37 Potassium 4.2 mmol/L (3.5-5.1) 07/08/25 11:37 Chloride 104 mmol/L (98-107) 07/08/25 11:37 Carbon Dioxide 29.0 mmol/L (21-32) 07/08/25 11:37 BUN 19 mg/dL (7-18) H 07/08/25 11:37 Creatinine 1.26 mg/dL (0.55-1.02) H 07/08/25 11:37 Est GFR (MDRD) Af Amer 52 (>60) L 07/08/25 11:37 Est GFR (MDRD) Non-Af 43 (>60) L 07/08/25 11:37 Glucose 113 mg/dL (65-99) H 07/08/25 11:37 Calcium 9.4 mg/dL (8.5-10.1) 07/08/25 11:37 Corrected Calcium TNP 07/08/25 11:37 Total Bilirubin 0.60 mg/dL (0.2-1.0) 07/08/25 11:37 AST 73 Units/L (15-37) H 07/08/25 11:37 ALT 47 Units/L (12-78) 07/08/25 11:37 Alkaline Phosphatase 127 Units/L (46-116) H 07/08/25 11:37 Creatine Kinase 106 Units/L (26-192) 07/08/25 11:37 Troponin I High Sens 7.5 ng/L (4.0-60.0) 07/08/25 11:37 Total Protein 8.1 g/dL (6.4-8.2) 07/08/25 11:37 Albumin 4.1 g/dL (3.4-5.0) 07/08/25 11:37 Globulin 4.0 g/dL (2.5-4.5) 07/08/25 11:37 Albumin/Globulin Ratio 1.0 Ratio (1.1-2.1) L 07/08/25 11:37 Lipase > 5000 Units/L (16-77) H 07/08/25 11:37 Opioid Opioid Risk Tool Age (Marko box if 16-45): No History of Preadolescent Sexual Abuse: No Total: 0 Total Score Risk Category: Low Risk Copyright: Juvenal MATA predicting aberrant behaviors Discharge Plan Diagnosis Discharge Problem: Acute pancreatitis, Abnormal findings on diagnostic imaging of gall bladder, Leukocytosis Discharge Plan Patient Disposition: ADMITTED INPATIENT Condition: Stable Prescriptions: No Action atorvastatin 20 mg tablet 20 mg PO QPM pantoprazole 40 mg tablet,delayed release (DR/EC) 40 mg PO BID gabapentin 100 mg capsule 100 mg PO TID ergocalciferol (vitamin D2) [Vitamin D2] 1,250 mcg (50,000 unit) Capsule 1,250 mcg PO QWEEK metoprolol tartrate 25 mg tablet 25 mg PO DAILY Patient Comments: [NO ORIGINAL SIG] Eliquis 2.5 mg tablet 2.5 mg PO BID amlodipine 5 mg tablet 5 mg PO QDAY Health Concerns: Post Hospitalization: new medications and changes needed to prevent readmission or further decline. Pt educated and given instructions on all concerns. Plan of Treatment: Continue with present treatment and follow up plan. Pt is to keep follow up appointment as instructed and take medications as ordered. Follow ups/Referrals Follow ups/Referrals: PEEWEE PATEL [Primary Care Provider, MEDICAL] - 3 days Instructions Stand Alone Forms: Find Help Web Site, Post Hospital Follow Up Care Print Language: PASHTO ADDITIONAL NOTES Additional Notes Additional Notes: patient discussed with Dr Swartz .pt has elevated wbc 16.5,lipase >5000,,AST 73,alk phosphatase [address] abdomen /plevis w/o contrast enlarged pancreatic head with surrounding edema .Gallbladder moderately distended .Agreed to have pateint admitted and have MRCP in am
[2025-07-08] MEDS: NS 1,000 ML IV 1,000 ML IV ONE (11:41)
[2025-07-08] MEDS: MORPHINE SULFATE INJ 2 MG INJ IVP ONE ×2 (11:47→12:09)
[2025-07-08] MEDS: ZOFRAN INJ 4 MG VIAL IVP ONE (11:47)
[2025-07-08 11:49] LABS: MEAN PLATELET VOLUME 7.1 fL (7.4-11.0)
[2025-07-08 11:52] LABS: RED CELL DISTRIBUTION WIDTH 13.1 % (11.6-16.5)
[2025-07-08 11:57] LABS: COR NA(FOR HYPERGLY) 142 mmol/L (136-145); CREATININE 1.26 mg/dL (0.55-1.02); eGFR NON BLACK RACES 43 (>60)
--- NOTE | 2025-07-08 13:09 | CT ---
EXAM: ABDOMEN/PELVIS W/O CON HISTORY: Pt states that last night she had a sudden onset of epigastric pain that radiates across the upper abdomen. Pain is described as intermittent sharp stabbing in nature. No alleviating or exacerbating factors noted. ; COMPARISON: 03/11/2024, 08/07/2019 TECHNIQUE: CT abdomen and pelvis without IV contrast. FINDINGS: Nonspecific 5 mm left base nodule (image 3). Intra and extrahepatic biliary dilatation with heterogeneous attenuation of the anterior right hepatic lobe. Common bile duct 13 mm. There is enlargement of the pancreatic head and proximal body with surrounding edema. Pancreatic duct not clearly enlarged. No calcified common bile duct stone is seen. Gallbladder is moderately distended without calcified stones seen. Normal appendix. Severe atherosclerosis. Multiple fixation screws of lumbosacral junction and bilateral ilii. unhealed comminuted right pubis and inferior ramus fractures. Healed right superior pubic ramus fracture. No definite acute osseous finding. Pertinent findings above. The lung bases, liver, gallbladder, pancreas, spleen, kidneys, gastrointestinal structures, urinary bladder, reproductive organs, lymph nodes, peritoneal space, bones, regional soft tissues were evaluated and determined to be non-acute or within normal limits for patient age except as discussed above. IMPRESSION: Dilated biliary tree with abnormal pancreas. Whether this reflects pancreatitis, or mass with resultant biliary stricture or bile duct obstruction with secondary pancreatitis is not clear. Recommend short interval follow-up with MRI and MRCP. Additional findings as above including small nonspecific pulmonary nodule for which six-month follow-up chest CT is recommended. THIS IS AN ELECTRONICALLY VERIFIED FINAL REPORT 07/08/2025 1:06 PM - Electronically signed by Levar Vick MD
[2025-07-08] MEDS: ZOSYN VIAL 3.375 GRAMS 3.375 G in NS 100 ML IV 100 ML IV SCH (14:34)
[2025-07-08] MEDS: LEVSIN/MAALOX/LIDOC VISC ONE (15:44)
[2025-07-08] MEDS: NS 1,000 ML IV 1,000 ML ONE (15:44)
[2025-07-08] MEDS: MORPHINE SULFATE INJ 2 MG INJ ONE ×2 (15:45)
[2025-07-08] MEDS: ZOFRAN INJ 4 MG VIAL ONE (15:45)
[2025-07-08 15:48] LABS: BLOOD/HEMOGLOBIN,URINE 3+ (NEGATIVE); LEUKOCYTE ESTERASE ,URINE NEGATIVE (NEGATIVE); NITRITES,URINE POSITIVE (NEGATIVE)
[2025-07-08] MEDS: LR 1,000 ML IV 1,000 ML IV SCH (15:54)
[2025-07-08] MEDS: MORPHINE SULFATE INJ 2 MG INJ IVP PRN (15:54)
[2025-07-08 16:00] LABS: APPEARANCE,URINE SLIGHTLY HAZY (CLEAR)
[2025-07-08 16:01] LABS: SQUAMOUS EPITHELIAL CELL,UR NEGATIVE /HPF (NEGATIVE)
[2025-07-08] MEDS ORDERED: ZOFRAN TAB 4 MG SL PRN (16:03)
[2025-07-08] MEDS: ZOFRAN INJ 4 MG VIAL IVP PRN (16:21)
[2025-07-08 16:23] VITALS: BMI 21.0
[2025-07-08] MEDS: DILAUDID INJ IVP PRN (18:24)
[2025-07-08] MEDS: NS 250 ML IV 25 ML IV PRN (21:08)
[2025-07-08] MEDS: ELIQUIS PO SCH (21:08)
[2025-07-08] MEDS: NEURONTIN CAP 100 MG PO SCH (21:08)
[2025-07-08] MEDS: LIPITOR TAB 20 MG PO SCH (21:09)
[2025-07-09 05:53] LABS: MEAN PLATELET VOLUME 7.3 fL (7.4-11.0); RED CELL DISTRIBUTION WIDTH 13.3 % (11.6-16.5)
[2025-07-09 06:03] LABS: COR CA(FOR HYPOALB) 9.8 mg/dL (8.5-10.1); CREATININE 1.14 mg/dL (0.55-1.02); eGFR NON BLACK RACES 48 (>60)
[2025-07-09 06:25] LABS: BAND NEUTROPHILS % 5 % (0-10); PLATELET MORPHOLOGY COMMENT NORMAL (NORMAL)
[2025-07-09] MEDS: PROTONIX INJ 40 MG VIAL IVP SCH (09:29)
[2025-07-09] MEDS: NORVASC TAB 5 MG PO SCH (11:31)
[2025-07-09] MEDS: LOPRESSOR TAB 25 MG PO SCH (11:31)
[2025-07-09] MEDS: NS 1,000 ML IV 1,000 ML IV SCH (11:32)
--- NOTE | 2025-07-09 17:21 | DR.H&P ---
H&P History & Physical for Day of: H&P Date: 07/08/25 Chief Complaint Chief Complaint: ABDOMINAL PAIN History of Present Illness History of Present Illness: Pt states that last night she had a sudden onset of epigastric pain that radiates across the upper abdomen. Pain is described as intermittent sharp stabbing in nature. No alleviating or exacerbating factors noted. Pain has worsened since waking up this morning. Pain is associated with nausea but no vomiting. Denies any fever or diarrhea. Pt had a normal bowel movement this morning. Past Medical History Past Medical History: Arthritis, COPD, Coronary Artery Disease, Dyslipidemia, GERD, Hypertension and [place] Past Surgical History Surgical History: Ortho Surgery Additional Surgical History: TUBAL LIGATION, CATARACT Family History Family Medical History: Cancer Social History Does patient currently use any type of tobacco product: No Have you used tobacco products in the last 12 months: No Type of Tobacco Use: None Does any household member use tobacco: No Alcohol Use: None Drug Use: None Medications Home Medications: Home Medications Medication Instructions Recorded Confirmed Type apixaban 2.5 mg tablet (Eliquis) 2.5 mg PO BID 5 07/08/25 History atorvastatin 20 mg tablet 20 mg PO QPM 12/23/24 History ergocalciferol (vitamin D2) 1,250 1,250 mcg PO QWEEK 0 12/23/24 07/08/25 History mcg (50,000 unit) capsule (Vitamin D2) gabapentin 100 mg capsule 100 mg PO TID 12/23/2407/08 History metoprolol tartrate 25 mg tablet 25 mg PO DAILY 07/08/25 History pantoprazole 40 mg tablet,delayed 40 mg PO BID 5 07/08/25 History release amlodipine 5 mg tablet 5 mg PO QDAY 07/08/25 History Allergies Allergies Allergy/AdvReac Type Severity Reaction Status Date / Time iodine Allergy Verified 07/08/25 10:29 Sulfa (Sulfonamide Allergy Verified 07/08/25 10:29 Antibiotics) (SULFA) Labs 07/09/25 05:23 07/09/25 05:23 Labs: Laboratory WBC 20.6 X10^3/uL (3.6-10.0) H 07/09/25 05:23 RBC 3.96 X10^6/uL (3.5-5.4) 07/09/25 05:23 Hgb 11.8 g/dL (12.0-16.0) L 07/09/25 05:23 Hct 35.3 % (36.0-47.0) L 07/09/25 05:23 MCV 89.2 fL (80.0-100.0) 07/09/25 05:23 MCH 29.8 pg (27.0-34.0) 07/09/25 05:23 MCHC 33.5 g/dL (33.0-35.0) 07/09/25 05:23 RDW 13.3 % (11.6-16.5) 07/09/25 05:23 Plt Count 297 X10^3/uL (150.0-450.0) 07/09/25 05:23 Plt Count Comment Adequate (ADEQUATE) 07/09/25 05:23 MPV 7.3 fL (7.4-11.0) L 07/09/25 05:23 Neut % (Auto) 93.8 % (42.0-75.0) H 07/09/25 05:23 Lymph % (Auto) 3.5 % (21.0-51.0) L 07/09/25 05:23 Wells % (Auto) 2.6 % (0.0-13.0) 07/09/25 05:23 Eos % (Auto) 0.0 % (0.9-2.9) L 07/09/25 05:23 Baso % (Auto) 0.1 % (0.2-1.0) L 07/09/25 05:23 Neut # (Auto) 19.3 x10^3/uL (2.2-4.8) H 07/09/25 05:23 Lymph # (Auto) 0.7 X10^3/uL (1.3-2.9) L 07/09/25 05:23 Wells # (Auto) 0.5 x10^3/uL (0.3-0.8) 07/09/25 05:23 Eos # (Auto) 0.0 x10^3/uL (0.0-0.2) 07/09/25 05:23 Baso # (Auto) 0.0 X10^3/uL (0.0-0.1) 07/09/25 05:23 Absolute Nucleated RBC 0.1 /100WBC 07/09/25 05:23 Total Counted 100 07/09/25 05:23 Neutrophils % (Manual) 83 % (39-76) H 07/09/25 05:23 Band Neutrophils % 5 % (0-10) 07/09/25 05:23 Lymphocytes % (Manual) 5 % (13-43) L 07/09/25 05:23 Monocytes % (Manual) 7 % (4-9) 07/09/25 05:23 Plt Morphology Comment Normal (NORMAL) 07/09/25 05:23 RBC Morphology Normal (NORMAL) 07/09/25 05:23 Sodium 145 mmol/L (136-145) 07/09/25 05:23 Corrected Sodium TNP 07/09/25 05:23 Potassium 4.1 mmol/L (3.5-5.1) 07/09/25 05:23 Chloride 108 mmol/L (98-107) H 07/09/25 05:23 Carbon Dioxide 31.6 mmol/L (21-32) 07/09/25 05:23 BUN 17 mg/dL (7-18) 07/09/25 05:23 Creatinine 1.14 mg/dL (0.55-1.02) H 07/09/25 05:23 Est GFR (MDRD) Af Amer 59 (>60) 07/09/25 05:23 Est GFR (MDRD) Non-Af 48 (>60) L 07/09/25 05:23 Glucose 104 mg/dL (65-99) H 07/09/25 05:23 Lactic Acid 1.8 mmol/L (0.4-2.0) 07/08/25 14:23 Calcium 9.1 mg/dL (8.5-10.1) 07/09/25 05:23 Corrected Calcium 9.8 mg/dL (8.5-10.1) 07/09/25 05:23 Total Bilirubin 0.60 mg/dL (0.2-1.0) 07/09/25 05:23 AST 37 Units/L (15-37) 07/09/25 05:23 ALT 36 Units/L (12-78) 07/09/25 05:23 Alkaline Phosphatase 81 Units/L (46-116) 07/09/25 05:23 Creatine Kinase 106 Units/L (26-192) 07/08/25 11:37 Troponin I High Sens 13.3 ng/L (4.0-60.0) 07/08/25 18:19 Total Protein 6.6 g/dL (6.4-8.2) 07/09/25 05:23 Albumin 3.1 g/dL (3.4-5.0) L 07/09/25 05:23 Globulin 3.5 g/dL (2.5-4.5) 07/09/25 05:23 Albumin/Globulin Ratio 0.9 Ratio (1.1-2.1) L 07/09/25 05:23 Lipase > 5000 Units/L (16-77) H 07/08/25 11:37 Specimen Type Clean catch urine 07/08/25 15:30 Urine Color Pale yellow (YELLOW) 07/08/25 15:30 Urine Appearance Slightly hazy (CLEAR) 07/08/25 15:30 Urine pH 6.0 (5.0 - 8.0) 07/08/25 15:30 Ur Specific [place] 1.020 (1.000-1.030) 07/08/25 15:30 Urine Protein 2+ (NEGATIVE) 07/08/25 15:30 Urine Glucose (UA) Negative (NEGATIVE) 07/08/25 15:30 Urine Ketones Negative (NEGATIVE) 07/08/25 15:30 Urine Blood 3+ (NEGATIVE) 07/08/25 15:30 Urine Nitrite Positive (NEGATIVE) 07/08/25 15:30 Urine Bilirubin Negative (NEGATIVE) 07/08/25 15:30 Urine Urobilinogen Normal (NORMAL) 07/08/25 15:30 Ur Leukocyte Esterase Negative (NEGATIVE) 07/08/25 15:30 Urine RBC 3-5 /HPF (0-3) A 07/08/25 15:30 Urine WBC 5-10 /HPF (0-5) A 07/08/25 15:30 Ur Squamous Epith Cells Negative /HPF (NEGATIVE) 07/08/25 15:30 Urine Bacteria 2+ /HPF (NEGATIVE) 07/08/25 15:30 Ur Culture Indicated? Yes/culture set up 07/08/25 15:30 Review of Systems Constitutional: Chills and Sweats Eyes: No Symptoms Reported ENT: No Symptoms Reported Respiratory: No Symptoms Reported Cardiovascular: No Symptoms Reported Gastrointestinal: Nausea, Vomiting and Abdominal Pain; denies Constipation Genitourinary: No Symptoms Reported Musculoskeletal: No Symptoms Reported Skin: No Symptoms Reported Neurological: No Symptoms Reported Physical Exam Vital Signs: Vital Signs Temperature 97.9 F Pulse Rate [Left Brachial] 82 Respiratory Rate 18 Respiratory Rate 18 Respiratory Rate 20 Blood Pressure [Left Arm] 163/70 O2 Sat by Pulse Oximetry 96 Oriented: Normal Eyes: Normal Ear: Normal Nose: Normal Throat: Normal Respiratory: RLL Diminished and LLL Diminished Cardiovascular: Normal; negative Edema Auscultation: Bowel Sounds: Increased Palpation: negative Liver Enlarged Tenderness: RUQ, LUQ and Epigastric Skin: Decreased Turgur Musculoskeletal: Normal Psychiatric: Normal Mood Description: Calm Affect: Normal Speech Pattern: Clear and Appropriate Assessment/Plan (1) Acute pancreatitis: Status: Acute Plan: ADMIT, NPO IV HYDRATION, PAIN CONTROL VERIFY HOME MEDICATIONS, BP CONTROL MRCP IN AM, PPI THERAPY (2) Leukocytosis: Status: Acute (3) Abnormal findings on diagnostic imaging of gall bladder: Status: Acute (4) History of atrial fibrillation: Status: Acute (5) Hypertension: Status: Acute (6) Lung nodule: Status: Acute
--- NOTE | 2025-07-09 19:45 | MRI ---
EXAM: MRI (MRCP) ABDOMEN WITHOUT AND WITH CONTRAST HISTORY: Abdominal pain. TECHNIQUE: Multiplanar (axial, sagittal, and coronal) T1 and T2-weighted images are obtained through the abdomen without administration of gadolinium. Two-dimensional and three-dimensional MIP images were reformatted. COMPARISON: CT abdomen pelvis dated July 08, 2025.. FINDINGS: BILIARY SYSTEM: The gallbladder is unremarkable, without evidence for cholelithiasis, gallbladder dilatation, wall thickening, or pericholecystic fluid. There is no intrahepatic biliary ductal dilatation seen. There is CBD dilatation (up to 1.2 cm), without discernible choledocholithiasis or obstructing mass lesion in the head of the pancreas. Consider follow-up evaluation with ERCP and brush biopsy of the ampulla if obstructive biliary disease is clinically suspected. PANCREAS: There is again evidence for peripancreatic interstitial edema with contiguous retroperitoneal interstitial edema which may represent sequela of acute pancreatitis in the appropriate clinical setting. No evidence for pancreatic enlargement, pancreatic necrosis, pancreatic pseudocyst formation, or pancreatic mass lesion is seen. GENITOURINARY SYSTEM: There are multiple innumerable tiny scattered bilateral renal cysts; largest cyst in the right lower pole kidney measuring approximately 1 cm. The kidneys are normal in size. No renal mass lesion is seen. There is no evidence for nephrolithiasis or obstructive uropathy. ABDOMEN: The liver, spleen, adrenal glands, aorta, and inferior vena cava are within normal limits. There is no intra-abdominal or retroperitoneal lymphadenopathy, free fluid, or free air seen. No abdominal herniation is noted. There are no stigmata of bowel obstruction, colitis or diverticulitis. LUNG BASES: There are small bilateral pleural effusions. IMPRESSION: 1. No evidence for cholelithiasis or cholecystitis. 2. CBD dilatation (up to 1.2 cm), without discernible choledocholithiasis or obstructing mass lesion in the head of the pancreas. Consider follow-up evaluation with ERCP and brush biopsy of the ampulla if obstructive biliary disease is clinically suspected. 3. Again evidence for peripancreatic interstitial edema with contiguous retroperitoneal interstitial edema which may represent sequela of acute pancreatitis in the appropriate clinical setting. 4. No evidence for pancreatic enlargement, pancreatic necrosis, pancreatic pseudocyst formation, or pancreatic mass lesion is seen. 5. No free fluid, mass lesions, or suspicious lymphadenopathy seen. 6. Small bilateral pleural effusions. THIS IS AN ELECTRONICALLY VERIFIED FINAL REPORT 07/09/2025 7:42 PM - Electronically signed by Marivel Krishnamurthy MD
[2025-07-10] MEDS: CATAPRES TAB 0.1 MG PO ONE (05:12)
[2025-07-10 05:47] LABS: MEAN PLATELET VOLUME 7.3 fL (7.4-11.0); RED CELL DISTRIBUTION WIDTH 13.3 % (11.6-16.5)
[2025-07-10 06:28] LABS: COR CA(FOR HYPOALB) 9.7 mg/dL (8.5-10.1); CREATININE 1.00 mg/dL (0.55-1.02); eGFR NON BLACK RACES 56 (>60)
[2025-07-10] MEDS ORDERED: CONSULT PHARMACY - POTASSIUM & MAGNESIUM XX SCH (07:00)
--- NOTE | 2025-07-10 09:16 | EKG ---
Test Reason : h/o a fib Blood Pressure : */* mmHG Vent. Rate : 65 BPM Atrial Rate : 65 BPM P-R Int : 202 ms QRS Dur : 146 ms QT Int : 450 ms P-R-T Axes : 72 83 -5 degrees QTc Int : 468 ms Normal sinus rhythm Right bundle branch block T wave abnormality, consider inferior ischemia Abnormal ECG When compared with ECG of 24-FEB-2025 10:17, CO interval has decreased Vent. rate has increased BY 24 BPM T wave inversion now evident in Inferior leads T wave inversion more evident in Anterior leads Confirmed by Lokesh Wagner MD ([id number]) on 07/10/2025 11:51:34 AM Referred By: Confirmed By: Lokesh Wagner MD
--- NOTE | 2025-07-10 09:47 | US ---
EXAM: Gallbladder ultrasound HISTORY: Acute pancreatitis, right upper quadrant pain TECHNIQUE: Multiple grayscale sonographic images were obtained. COMPARISON: CT abdomen pelvis 07/08/2025, MRCP 07/09/2025 FINDINGS: Liver is normal in size and configuration and without cyst or mass. Intrahepatic biliary ducts do not appear dilated. Portal blood flow was hepatopetal. Hepatic artery was patent. Hepatic venous blood flow was hepatofugal. No gallstones identified within the gallbladder. Gallbladder wall thickness was normal. Common hepatic duct 4 mm. More distal common bile duct not well-visualized. Pancreas was somewhat heterogeneous in texture. Right kidney measured 10.1 cm in length. No solid masses, hydro nephrosis, stones, or perinephric fluid collections were identified. IMPRESSION: No evidence for cholelithiasis or cholecystitis Common hepatic duct 4 mm. More distally the common bile duct was not well-visualized. Somewhat heterogeneous pancreatic parenchyma. No discrete masses or pancreatic ductal dilatation. THIS IS AN ELECTRONICALLY VERIFIED FINAL REPORT 07/10/2025 9:35 AM - Electronically signed by Alen Brown MD
[2025-07-10] MEDS: K-DUR TAB 20 MEQ PO SCH (09:57)
[2025-07-11 05:51] LABS: MEAN PLATELET VOLUME 7.4 fL (7.4-11.0); RED CELL DISTRIBUTION WIDTH 13.2 % (11.6-16.5)
[2025-07-11 06:04] LABS: COR CA(FOR HYPOALB) 9.7 mg/dL (8.5-10.1); CREATININE 0.97 mg/dL (0.55-1.02); eGFR NON BLACK RACES 58 (>60)
[2025-07-11] MEDS ORDERED: CONSULT PHARMACY - POTASSIUM & MAGNESIUM XX SCH (17:00)
[2025-07-11] MEDS: MAG-OX TAB PO SCH (20:57)
[2025-07-11] MEDS: POTASSIUM CHLORIDE LIQ PO SCH (20:58)
[2025-07-12 06:05] LABS: MEAN PLATELET VOLUME 7.4 fL (7.4-11.0); RED CELL DISTRIBUTION WIDTH 13.1 % (11.6-16.5)
[2025-07-12 06:27] LABS: COR CA(FOR HYPOALB) 9.6 mg/dL (8.5-10.1); CREATININE 0.93 mg/dL (0.55-1.02); eGFR NON BLACK RACES > 60 (>60)
[2025-07-12] MEDS ORDERED: NS + KCL 20 MEQ/L 1,000 ML with MAGNESIUM SULFATE 50% INJ VIAL 1 G IV SCH (08:00)
[2025-07-12] MEDS ORDERED: CONSULT PHARMACY - POTASSIUM & MAGNESIUM XX SCH (08:00)
[2025-07-12] MEDS: NS 500 ML IV 500 ML with POTASSIUM CHLORIDE INJ 40 MEQ VIAL 40 MEQ, MAGNESIUM SULFATE 5... IV ONE (09:13)
--- NOTE | 2025-07-12 10:15 | RAD ---
EXAM: CHEST, 1 VIEW HISTORY: diminished lungs sounds ro fluid overload/chf; COMPARISON: 02/24/2025 TECHNIQUE: .br.br.br.br.br Pulmonary vascular engorgement. Mild streaky perihilar opacities. Layering small pleural effusions, [id number]. No visible pneumothorax. IMPRESSION: Pulmonary edema with small pleural effusions, [id number]. THIS IS AN ELECTRONICALLY VERIFIED FINAL REPORT 07/12/2025 10:11 AM - Electronically signed by Yoni Thompson MD
[2025-07-12] MEDS: LASIX IVP ONE (10:22)
[2025-07-12] MEDS: K-DUR TAB 20 MEQ PO SCH (10:23)
[2025-07-12 13:13] VITALS: BP 132/68; PULSE 59; RESP 18; TEMP 98; O2SAT 95
== END 2025-07-12 13:40 | disposition home or self-care (01) | DRG 439 ==
LOC: ER 10:04 → MED/SURG 14:56
PROVIDERS: ADMIT Internal Medicine; ATTEND Internal Medicine